=== PATIENT | male | born 1980 | race African-American/Black ===

== ENCOUNTER 2017-04-28 05:59 | Emergency (ER) | payer OTHER ==
[~2017-04-28] VITALS: Ht 188 cm; Wt 104.3 kg
[2017-04-28] MEDS ORDERED: LANTUS SOL100 UNIT/1 SUBQ (06:06)
[2017-04-28 06:12] VITALS: BP 138/88
[2017-04-28] MEDS ORDERED: TRAMADOL HCL50 MG ORAL (06:40)
--- NOTE | 2017-04-28 06:42 | Emergency Room Report ---
History of Present Illness General Chief Complaint: Sore Throat Source: Patient Present Illness HPI Is a 37-year-old male with no significant past medical history. He presents with chief complaint of sore throat for a week. Also has a cough and congestion. Also with runny nose. No fever or chills. Worse with lying flat. also with hoarseness of his voice and losing his voice. Denies any other complaint Allergies: Coded Allergies: No Known Allergies (Unverified , 04/28/17) Patient History Past Medical History: see triage record, old chart reviewed Past Surgical History: none Pertinent Family History: none Social History: Denies: smoking Immunizations: other Reviewed Nursing Documentation: PMH: Agreed, PSxH: Agreed Nursing Documentation-PMH Hx Diabetes: Yes Review of Systems Eye: Denies: blurred vision, eye pain ENT: Reports: nose congestion, throat pain, Denies: ear pain, throat swelling Respiratory: Reports: cough, Denies: shortness of breath Cardiovascular: Denies: chest pain, palpitations Gastrointestinal: Denies: abdominal pain, diarrhea, nausea, vomiting Musculoskeletal: Denies: back pain, joint pain Skin: Denies: rash Neurological: Denies: headache, numbness Endocrine: Denies: increased thirst, increased urine Hematologic/Lymphatic: Denies: easy bruising All Other Systems: negative except mentioned in HPI Physical Exam Vital Signs Date Time Temp Pulse Resp B/P Pulse Ox O2 Delivery O2 Flow Rate FiO2 04/28/17 06:03 98.2 79 14 138/88 96 Room Air vitals normal Sp02 EP Interpretation: reviewed, normal General Appearance: well appearing, no apparent distress, alert Head: normocephalic, atraumatic Eyes: bilateral eye EOMI, bilateral eye PERRL ENT: hearing grossly normal, uvula midline - Edema, pharyngeal erythema Neck: full range of motion, supple, no meningismus Respiratory: chest non-tender, lungs clear, normal breath sounds Cardiovascular #1: regular rate, rhythm, no murmur Gastrointestinal: normal bowel sounds, non tender, no mass, no organomegaly, no bruit, non-distended Musculoskeletal: back normal, gait/station normal, normal range of motion Psychiatric: mood/affect normal Skin: warm/dry Medical Decision Making Diagnostic Impression: Primary Impression: Acute viral pharyngitis ER Course Patient with a viral pharyngitis. No evidence of peritonsillar abscess or retropharyngeal abscess. No evidence of Bruce angina. We'll discharge home with reassurance. No need for antibiotics. Last Vital Signs Date Time Temp Pulse Resp B/P Pulse Ox O2 Delivery O2 Flow Rate FiO2 04/28/17 06:12 98.2 14 138/88 96 Room Air 04/28/17 06:03 79 Status: unchanged Disposition: HOME, SELF-CARE Condition: Stable Scripts Tramadol Hcl* (ULTRAM*) 50 Mg Tablet 50 MG ORAL BID Y for For Pain, #20 TAB 0 Refills Prov: LORRIE HALL M.D. 04/28/17 Additional Instructions: Follow up with your doctor in 7 days. Return if symptoms worsen. LORRIE HALL M.D. Apr 28, 2017 06:42
[2017-04-28] MEDS ORDERED: Oxycodone/Acetaminophen 5-325 ORAL ONE (06:45)
[2017-04-28] MEDS ORDERED: PredniSONE 20mg tab ORAL ONE (06:45)
[2017-04-28 06:46] VITALS: BP 138/88
== END 2017-04-28 06:46 | disposition home or self-care (01) ==
LOC: EMR 06:05
DX: J02.9 Acute pharyngitis, unspecified (principal); E11.9 Type 2 diabetes mellitus without complications
CPT/HCPCS: 99283

== ENCOUNTER 2019-09-19 04:14 | Emergency (ER) | payer OTHER ==
[~2019-09-19] VITALS: Ht 188 cm; Wt 104.3 kg
[~2019-09-19 04:14] MED LIST: LANTUS SOL100 UNIT/1 SUBQ; TRAMADOL HCL50 MG ORAL
[2019-09-19 04:26] VITALS: BP 124/89
--- NOTE | 2019-09-19 04:28 | NUR ---
ER Nurse Note: Pt walked in c/o sore throat since 09/15. Pt stated 06/07 pain, niranjan when swollowing. Pt denies coughing, mucus production, no signs of distress. ERMD at bedside; will continue to montior.
--- NOTE | 2019-09-19 04:29 | Emergency Room Report ---
History of Present Illness General Chief Complaint: Sore Throat Source: Patient Present Illness HPI 39-year-old male presents with sore throat x4 days, iritis swallowing alleviated with rest severity is moderate, intermittent, patient endorses chills , no nausea no vomiting no cough, patient presents for evaluation Allergies: Coded Allergies: No Known Allergies (Unverified , 04/28/17) Patient History Past Medical History: see triage record Reviewed Nursing Documentation: PMH: Agreed; PSxH: Agreed Nursing Documentation-PMH Past Medical History: No History, Except For Hx Diabetes: Yes Review of Systems All Other Systems: negative except mentioned in HPI Physical Exam Vital Signs Date Time Temp Pulse Resp B/P (MAP) Pulse Ox O2 Delivery O2 Flow Rate FiO2 09/19/19 04:17 97.9 97 19 124/89 (101) 97 Room Air General Appearance: well appearing, no apparent distress Head: normocephalic, atraumatic Eyes: bilateral eye PERRL, bilateral eye EOMI ENT: hearing grossly normal, normal voice, uvula midline, moist mucus membranes , pharyngeal erythema, tonsillar exudate, other - Bilateral exudates Neck: full range of motion, supple Respiratory: no respiratory distress, speaking full sentences Neurologic: alert, normal gait Psychiatric: mood/affect normal Skin: no rash Medical Decision Making Diagnostic Impression: Primary Impression: Strep throat ER Course Patient with most likely strep throat, 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, vessel captain, 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 will provide decadron here abx dispo home w/ return precautions Last Vital Signs Date Time Temp Pulse Resp B/P (MAP) Pulse Ox O2 Delivery O2 Flow Rate FiO2 09/19/19 04:26 97.9 76 19 124/89 97 Room Air Disposition: HOME, SELF-CARE Condition: Stable Scripts Penicillin V Potassium* (PENVK*) 500 Mg Tablet 500 MG PO BID, #20 TAB 0 Refills Prov: Maciel Ha MD 09/19/19 Referrals: NOT CHOSEN RAY/,REFERRING (PCP) [facility] Patient Instructions: Strep Throat, Sore Throat Additional Instructions: The patient was provided with discharge instructions, notified to follow-up with a primary care doctor and or specialist in the next 24-48 hours, and to return to the ED if they have worsening of their symptoms. Please note that this report is being documented using DRAGON technology. This can lead to erroneous entry secondary to incorrect interpretation by the dictating instrument. Maciel Ha MD Sep 19, 2019 04:29
[2019-09-19] MEDS ORDERED: Dexamethasone 4mg/ml vial IVP ONE (04:30)
[2019-09-19] MEDS ORDERED: PENICILLIN V P500 MG PO (04:32)
[2019-09-19 04:40] VITALS: BP 124/89
--- NOTE | 2019-09-19 04:40 | NUR ---
ER Nurse Note: Patient seen, treated, medically cleared to be discharged per ERMD. Discharge instructions and prescriptons given with repeat verbalization by pt. Instructed pt to follow up with primary care physican within one week. Pt is aox4, on room air, with stable vital signs. ID band removed. Pt ambulatory; left with all belongings.
== END 2019-09-19 04:40 | disposition home or self-care (01) ==
LOC: EMR 04:28
DX: J02.0 Streptococcal pharyngitis (principal); E11.9 Type 2 diabetes mellitus without complications
CPT/HCPCS: 96374; 99284; J1100

== ENCOUNTER 2019-09-20 22:37 | Emergency (ER) | payer MEDICAID, OTHER ==
[~2019-09-20] VITALS: Ht 190.5 cm; Wt 104.3 kg
[~2019-09-20 22:37] MED LIST changes: +PENICILLIN V P500 MG PO
--- NOTE | 2019-09-20 22:50 | NUR ---
ED Nurse Note: pt walked in to ED for C/O sore throat. pt states he was seen here 2 days ago and was prescribed abx but does not feel any better. pt is alert x4.
[2019-09-20 22:51] VITALS: BP 120/85
--- NOTE | 2019-09-20 23:29 | Emergency Room Report ---
History of Present Illness General Chief Complaint: Sore Throat Source: Patient Present Illness HPI Is a 39-year-old male with no past medical history. He presents with complaint of sore throat. He was here 2 days ago and diagnosed with strep throat. He was given Pen-Vee K. His symptoms been ongoing for 6 days now. Now is getting worse. He said he is having a hard time swallowing. With hoarseness in his voice also. He also has increasing swelling to his left neck. Pain is 9 out of 10. Worse with eating and swallowing. Denies any fever chills. Allergies: Coded Allergies: No Known Allergies (Unverified , 04/28/17) Patient History Past Medical History: see triage record, old chart reviewed Past Surgical History: none Pertinent Family History: none Social History: Denies: smoking Immunizations: other Reviewed Nursing Documentation: PMH: Agreed; PSxH: Agreed Nursing Documentation-PM Past Medical History: No History, Except For Hx Diabetes: Yes Review of Systems Eye: Denies: eye pain, blurred vision ENT: Reports: throat pain, throat swelling; Denies: ear pain, nose congestion Respiratory: Denies: cough, shortness of breath Cardiovascular: Denies: chest pain, palpitations Gastrointestinal: Denies: abdominal pain, diarrhea, nausea, vomiting Musculoskeletal: Denies: back pain, joint pain Skin: Denies: rash Neurological: Denies: headache, numbness Endocrine: Denies: increased thirst, increased urine Hematologic/Lymphatic: Denies: easy bruising All Other Systems: negative except mentioned in HPI Physical Exam Vital Signs Date Time Temp Pulse Resp B/P (MAP) Pulse Ox O2 Delivery O2 Flow Rate FiO2 09/20/19 22:45 98.4 103 18 124/85 (98) 97 Room Air Sp02 EP Interpretation: reviewed, normal General Appearance: well appearing, no apparent distress, alert Head: normocephalic, atraumatic Eyes: bilateral eye PERRL, bilateral eye EOMI ENT: hearing grossly normal, tonsillar swelling, pharyngeal erythema, tonsillar exudate, other - Left peritonsillar abscess. No trismus Neck: full range of motion, supple, no meningismus Respiratory: chest non-tender, lungs clear, normal breath sounds Cardiovascular #1: regular rate, rhythm, no murmur Gastrointestinal: normal bowel sounds, non tender, no mass, no organomegaly, no bruit, non-distended Musculoskeletal: back normal, normal range of motion, gait/station normal Psychiatric: mood/affect normal Procedures Additional Procedure Procedure Narrative Procedure: Needle aspiration of abscess Indication: Peritonsillar abscess Description: Local anesthetic with 1% lidocaine without epinephrine. I injected about 1 to 2 cc. Using an 18-gauge needle with a test tube cap at the end exposing just 1cm, try to aspirate the most fluctuant area of the abscess. Medially and superiorly. I attempted 4 times and unable to get any purulent drainage. There was slight bleeding but that was controlled over time. Patient tolerated procedure without any problem. No complications Medical Decision Making Diagnostic Impression: Primary Impression: Peritonsillar abscess ER Course Patient presents with a peritonsillar abscess. He actually improved here in the ER with IV antibiotics and steroid. He has no trismus. He has no drooling. Will discharge home with close follow-up and recheck in 1 to 2 days. If not better, he will need admission for IV antibiotics and ENT consultation. CT/MRI/US Diagnostic Results CT/MRI/US Diagnostic Results : Imaging Test Ordered: CT soft tissue neck Impression Read by radiologist. There is a 24 x 17 mm abscess involving the left pontine tonsillar region. Last Vital Signs Date Time Temp Pulse Resp B/P (MAP) Pulse Ox O2 Delivery O2 Flow Rate FiO2 09/20/19 22:51 98.4 85 18 120/85 98 Room Air Status: improved Disposition: HOME, SELF-CARE Condition: Improved Scripts Hydrocodone/Acetaminophen 5-325* (HYDROCODONE/ACETAMINOPHEN 5-325*) 1 Each Tablet 1 TAB ORAL Q6H PRN for For Pain, #20 TAB 0 Refills Prov: Joel Mendoza MD 09/21/19 Clindamycin Hcl (CLINDAMYCIN HCL) 300 Mg Capsule 300 MG ORAL THREE TIMES A DAY, #21 CAP Prov: Joel Mendoza MD 09/21/19 Additional Instructions: Increase fluids. salt water gargle. Follow-up in 1 to 2 days for recheck. If worse return sooner. Joel Mendoza MD Sep 20, 2019 23:29
[2019-09-20] MEDS ORDERED: Dexamethasone 4mg/ml vial IVP ONE (23:30)
[2019-09-20] MEDS ORDERED: Omnipaue 350mg/ml 100ml vial INJ PRN (23:30)
[2019-09-20] MEDS ORDERED: cefTRIAXone 1 GM in NS 55 ML IVPB ONE (23:30)
--- NOTE | 2019-09-20 23:38 | NUR ---
ED Nurse Note: blood sample sent down to lab
[2019-09-20 23:41] LABS: BASOPHILS % (AUTO) 0.8 % (0.0-2.0); EOSINOPHILS % (AUTO) 0.5 % (0.0-3.0); HEMATOCRIT 47.3 % (42.0-52.0); LYMPHOCYTES % (AUTO) 23.1 % (20.0-45.0); MEAN CORPUSCULAR VOLUME 84 FL (80-99); MONOCYTES % (AUTO) 9.3 % (1.0-10.0); NEUTROPHILS % (AUTO) 66.2 % (45.0-75.0); PLATELET COUNT 322 K/UL (150-450); RED BLOOD COUNT 5.66 M/UL (4.70-6.10); RED CELL DISTRIBUTION WIDTH 10.2 % (11.6-14.8)
[2019-09-20 23:52] LABS: ANION GAP 11 mmol/L (5-15); BLOOD UREA NITROGEN 12 mg/dL (7-18); CARBON DIOXIDE 28 MMOL/L (21-32); CHLORIDE 98 MMOL/L (98-107); POTASSIUM 4.1 MMOL/L (3.5-5.1); SODIUM 137 MMOL/L (136-145)
--- NOTE | 2019-09-21 00:40 | NUR ---
ED Nurse Note: pt went to ct
--- NOTE | 2019-09-21 00:51 | NUR ---
ED Nurse Note: pt back from ct
[2019-09-21 01:11] VITALS: BP 122/81
--- NOTE | 2019-09-21 01:48 | Diagnostic Imaging Report ---
EXAM: CT Angiography Chest and CT Abdomen, Pelvis, Thoracic Spine and Lumbar Spine Without and With Intravenous Contrast CLINICAL HISTORY: PAIN TECHNIQUE: Axial computed tomographic angiography images of the chest and axial computed tomography images of the abdomen, pelvis, thoracic spine and lumbar spine without and with intravenous contrast. CTDI is 30 mGy and DLP is 1049 One or more of the following dose reduction techniques were used: automated exposure control, adjustment of the mA and/or kV according to patient size, use of iterative reconstruction technique. MIP reconstructed images were created and reviewed. COMPARISON: No relevant prior studies available. FINDINGS: CHEST: Aorta: No acute findings. No aortic aneurysm. No dissection. Pulmonary arteries: Unremarkable as visualized. No pulmonary embolism is identified. Great vessels of aortic arch: No acute findings. No dissection. No arterial occlusion or significant stenosis. Lungs: Unremarkable. No mass. No consolidation. Pleural space: Unremarkable. No significant effusion. No pneumothorax. Heart: Unremarkable. No cardiomegaly. No significant pericardial effusion. ABDOMEN: Liver: Unremarkable. No mass. Gallbladder and bile ducts: Unremarkable. No calcified stones. No ductal dilation. Pancreas: Unremarkable. No ductal dilation. No mass. Spleen: Unremarkable. No splenomegaly. Adrenals: Unremarkable. No mass. Kidneys and ureters: Unremarkable. No obstructing stones. No hydronephrosis. No solid mass. Stomach and bowel: Unremarkable. No obstruction. No mucosal thickening. PELVIS: Appendix: No findings to suggest acute appendicitis. Bladder: Unremarkable. No stones. No mass. Reproductive: Unremarkable as visualized. THORACIC and LUMBAR SPINE: Vertebrae: mGy-cm. No acute fracture. Discs/spinal canal/neural foramina: No acute findings. No spinal canal stenosis. CHEST, ABDOMEN and PELVIS: Intraperitoneal space: Unremarkable. No significant fluid collection. No free air. Bones/joints: No acute fracture. No dislocation. Soft tissues: Unremarkable. Lymph nodes: Unremarkable. No enlarged lymph nodes. Other findings: 24 x 17 mm abscess involving left palatine tonsil region. Associated moderate oropharyngeal narrowing. IMPRESSION: 24 x 17 mm abscess involving left palatine tonsillar region. Associated moderate oropharyngeal narrowing.
[2019-09-21] MEDS ORDERED: CLINDAMYCIN HC300 MG ORAL (02:51)
[2019-09-21] MEDS ORDERED: HYDROCODON-ACE1 EA15 ORAL (02:51)
[2019-09-21 02:59] VITALS: BP 128/80
--- NOTE | 2019-09-21 02:59 | NUR ---
ER DISCHARGE NOTE: Patient is cleared to be discharged per ERMD, pt is aox4, on room air, with stable vital signs. pt was given dc and prescription instructions, pt was able to verbalize understanding, pt id band and iv site removed without complications. pt is able to ambulate with steady gait. pt took all belongings.
== END 2019-09-21 02:58 | disposition home or self-care (01) ==
LOC: EMR 23:00
DX: J36 Peritonsillar abscess (principal)
CPT/HCPCS: 36415; 70498; 80048; 85025; 96361; 96365; 96375; 99284; J0696; J1100; J7030; Q9967